=== PATIENT | female | born 1960 | race Caucasian/White ===

== ENCOUNTER 2016-10-02 09:32 | Inpatient (IN) | payer BC ==
[~2016-10-02] VITALS: Ht 165.1 cm; Wt 71.0 kg
[2016-10-02 10:05] VITALS: BP 109/72
[2016-10-02] MEDS ORDERED: APIX5TAB PO (10:32)
[2016-10-02] MEDS ORDERED: CHOL200040 PO (10:32)
[2016-10-02] MEDS ORDERED: MULT-377 PO (10:32)
[2016-10-02] MEDS ORDERED: PARO7.5C PO (10:32)
[2016-10-02] MEDS ORDERED: METO25TA9 PO (10:32)
[2016-10-02] MEDS ORDERED: ASPI-650 PO (10:32)
[2016-10-02] MEDS ORDERED: RANI150T8 PO (10:33)
[2016-10-02] MEDS ORDERED: BISACODYL 10 MG SUPP PR PRN (11:30)
[2016-10-02] MEDS ORDERED: ONDANSETRON 2MG/ML, 2ML IVPush PRN (11:30)
[2016-10-02] MEDS ORDERED: ACETAMINOPHEN 325 MG TABLET PO PRN (11:30)
[2016-10-02] MEDS ORDERED: BISACODYL 5 MG EC TABLET PO PRN (11:30)
[2016-10-02] MEDS ORDERED: ZOLPIDEM 5MG TABLET PO PRN (11:30)
[2016-10-02 11:50] VITALS: BP 135/95
[2016-10-02] MEDS: APIXABAN 5 MG TABLET PO SCH ×2 (11:52→22:05)
[2016-10-02] MEDS: SOTALOL 80MG TABLET PO SCH ×2 (11:52→22:06)
[2016-10-02 12:33] LABS: BLOOD UREA NITROGEN 18 mg/dL (7-18)
[2016-10-02 12:43] LABS: IS PT STATUS REG ER OR PRE ER? NO
[2016-10-02 14:34] VITALS: BP 119/79
[2016-10-02 17:17] LABS: IS PT STATUS REG ER OR PRE ER? NO
[2016-10-02 18:30] VITALS: BP 116/81
[2016-10-02] MEDS ORDERED: SOTALOL 80MG TABLET PO SCH (21:00)
[2016-10-02] MEDS ORDERED: APIXABAN 5 MG TABLET PO SCH (21:00)
[2016-10-02 23:21] LABS: IS PT STATUS REG ER OR PRE ER? NO
[2016-10-03 01:13] VITALS: BP 129/80
[2016-10-03 07:28] VITALS: BP 110/67
[2016-10-03] MEDS: APIXABAN 5 MG TABLET PO SCH ×2 (08:07→20:16)
[2016-10-03] MEDS: SOTALOL 80MG TABLET PO SCH ×2 (08:07→20:16)
[2016-10-03 16:02] VITALS: BP 114/67
[2016-10-03 18:41] VITALS: BP 119/71
[2016-10-04 01:16] VITALS: BP 104/62
[2016-10-04 06:45] VITALS: BP 111/73
[2016-10-04] MEDS: APIXABAN 5 MG TABLET PO SCH (08:10)
[2016-10-04] MEDS: SOTALOL 80MG TABLET PO SCH (08:10)
[2016-10-04] MEDS ORDERED: SOTA80TA18 PO (09:24)
[2016-10-04] MEDS ORDERED: APIX5TAB PO (12:26)
== END 2016-10-04 11:00 | disposition home or self-care (01) | DRG 309 ==
LOC: 5SO 09:32 → EDSTATUS 11:00 → DCLOUNGE 10-04 10:40
PROVIDERS: ADMIT Internal Medicine Cardiovascular Disease; ATTEND Internal Medicine Cardiovascular Disease
DX: I48.0 Paroxysmal atrial fibrillation (principal); D68.69 Other thrombophilia; Z79.82 Long term (current) use of aspirin
CPT/HCPCS: 36415; 71020; 80048; 80061; 84439; 84443; 84484; 85014; 85018; 93005

== ENCOUNTER → 2017-04-25 | Outpatient (CLI) | payer BC ==
[~2017-04-25] MED LIST: APIX5TAB PO; ASPI-650 PO; CHOL200040 PO; METO-282 PO; MULT-377 PO; PARO7.5C PO; RANI150T8 PO; REGADENOSON 0.4 MG/5 ML SYRINGE ONE; SOTA80TA18 PO
== END | disposition home or self-care (01) ==
LOC: RAD 07:55
PROVIDERS: ATTEND Internal Medicine Cardiovascular Disease
DX: R06.02 Shortness of breath (principal); I10 Essential (primary) hypertension
CPT/HCPCS: 78452; 93017; 93306; A9502; J2785

== ENCOUNTER → 2017-12-21 | Outpatient (CLI) | payer BC ==
[~2017-12-21] MED LIST changes: +RANI150T23 PO; -RANI150T8 PO; -REGADENOSON 0.4 MG/5 ML SYRINGE ONE
== END | disposition home or self-care (01) ==
LOC: CFH 09:32
PROVIDERS: ATTEND Internal Medicine
DX: J18.9 Pneumonia, unspecified organism (principal); E04.1 Nontoxic single thyroid nodule; R91.8 Other nonspecific abnormal finding of lung field
CPT/HCPCS: 71250

== ENCOUNTER 2019-08-27 07:37 | Outpatient (CLI) | payer BC ==
[~2019-08-27 07:37] MED LIST changes: -MULT-377 PO; +MULT-395 PO; +RANI-467 PO; -RANI150T23 PO
[2019-08-27] MEDS ORDERED: REGADENOSON 0.4 MG/5 ML SYRINGE ONE (11:20)
== END 2019-08-27 23:59 | disposition home or self-care (01) ==
LOC: CFH 07:37
PROVIDERS: ATTEND Family Medicine
DX: I08.0 Rheumatic disorders of both mitral and aortic valves (principal); I25.9 Chronic ischemic heart disease, unspecified; I48.91 Unspecified atrial fibrillation
CPT/HCPCS: 78452; 93017; 93306; A9502; J2785

== ENCOUNTER 2019-09-10 11:01 | Day surgery (SDC) | payer BC ==
[~2019-09-10] VITALS: Ht 165.1 cm; Wt 80.0 kg
[2019-09-10] MEDS ORDERED: ALBU8.5H8 INH (11:40)
[2019-09-10] MEDS ORDERED: ESOM20CA PO (11:40)
[2019-09-10] MEDS ORDERED: FLUT1BLS INH (11:40)
[2019-09-10] MEDS ORDERED: CEFU250T66 PO (11:40)
[2019-09-10 11:59] LABS: BASOPHILS # (AUTO) 0.03 x10^3/uL (0-0.1); BASOPHILS % (AUTO) 0 % (0-1); EOSINOPHILS % (AUTO) 1 % (1-7); LYMPHOCYTES % (AUTO) 30 % (22-44); MD NO; MEAN CORPUSCULAR HEMOGLOBIN 32.6 pg (27.0-34.8); MEAN CORPUSCULAR HGB CONC 33.4 g/dL (32.4-35.8); MEAN CORPUSCULAR VOLUME 97.8 fL (80-100); MEAN PLATELET VOLUME 9.7 fL (7.4-10.4); MONOCYTES # (AUTO) 0.69 x10^3/uL (0.2-0.8); MONOCYTES % (AUTO) 8 % (2-9); NEUTROPHILS % (AUTO) 61 % (42-75); PLATELET COUNT 189 x10^3/uL (130-400); RED BLOOD COUNT 4.65 x10^6/uL (3.82-5.3); RED CELL DISTRIBUTION WIDTH 13.8 % (9.6-15.2)
[2019-09-10 12:09] LABS: ANION GAP 7 mmol/L (5-15); CALCIUM 9.7 mg/dL (8.5-10.1); CHLORIDE 108 mmol/L (98-107); CREATININE 0.99 mg/dL (0.55-1.02)
[2019-09-10] MEDS ORDERED: LIDOCAINE 1%, 20ML ONE (12:10)
[2019-09-10] MEDS ORDERED: MIDAZOLAM 1 MG/ML, 5ML ONE (12:10)
[2019-09-10] MEDS ORDERED: FENTANYL PF 100 MCG/2ML ONE (12:10)
[2019-09-10] MEDS ORDERED: OXYcodone/APAP 5/325MG TABLET PO ONE (17:00)
== END 2019-09-10 17:11 | disposition home or self-care (01) ==
LOC: CACL 11:01 → 5SO 13:26 → CACL 17:11
PROVIDERS: ATTEND Internal Medicine Cardiovascular Disease
DX: R93.1 Abnormal findings on diagnostic imaging of heart and coronary circulation (principal); I20.8 Other forms of angina pectoris; E78.5 Hyperlipidemia, unspecified; I48.0 Paroxysmal atrial fibrillation; K21.9 Gastro-esophageal reflux disease without esophagitis; Z79.899 Other long term (current) drug therapy; Z79.01 Long term (current) use of anticoagulants; Z98.890 Other specified postprocedural states; Z79.82 Long term (current) use of aspirin; Z72.89 Other problems related to lifestyle
CPT/HCPCS: 36415; 80048; 85025; 93458; 99156; C1760; C1769; C1894; J2250; J3010; Q9967; G0378

== ENCOUNTER 2020-01-20 15:56 | Emergency (ER) | payer BC ==
[~2020-01-20] VITALS: Ht 167.6 cm; Wt 79.2 kg
[~2020-01-20 15:56] MED LIST changes: +ALBU8.5H8 INH; +CEFU250T66 PO; +ESOM20CA PO; +FLUT1BLS INH
[2020-01-20 16:42] LABS: BASOPHILS % (AUTO) 0 % (0-1); EOSINOPHILS % (AUTO) 0 % (1-7); LYMPHOCYTES % (AUTO) 36 % (22-44); MEAN CORPUSCULAR HEMOGLOBIN 31.7 pg (27.0-34.8); MEAN CORPUSCULAR HGB CONC 33.8 g/dL (32.4-35.8); MEAN PLATELET VOLUME 9.7 fL (7.4-10.4); MONOCYTES % (AUTO) 12 % (2-9); NEUTROPHILS % (AUTO) 52 % (42-75); PLATELET COUNT 175 x10^3/uL (130-400); RED BLOOD COUNT 4.66 x10^6/uL (3.82-5.3)
[2020-01-20 16:47] LABS: MD NO
[2020-01-20 16:54] LABS: ALANINE AMINOTRANSFERASE 69 U/L (12-78); ALBUMIN 3.7 g/dL (3.4-5.0); ANION GAP 7 mmol/L (5-15); CALCIUM 9.9 mg/dL (8.5-10.1); CHLORIDE 104 mmol/L (98-107); CREATININE 0.87 mg/dL (0.55-1.02)
[2020-01-20 16:58] LABS: ALKALINE PHOSPHATASE 90 U/L (45-117); BILIRUBIN,TOTAL 0.5 mg/dL (0.2-1.0); TOTAL PROTEIN 7.1 g/dL (6.4-8.2)
[2020-01-20] MEDS ORDERED: METH16TA PO (17:07)
[2020-01-20] MEDS ORDERED: FLUT1BLS3 IH (17:07)
[2020-01-20 18:30] LABS: TROPONIN I 0.017 ng/mL (0.000-0.045)
--- NOTE | 2020-01-20 19:00 | NUR ---
report received from timi [email or web address].
[2020-01-20 19:37] VITALS: BP 122/67
== END 2020-01-20 19:39 | disposition home or self-care (01) ==
LOC: ED 17:35
DX: J44.1 Chronic obstructive pulmonary disease with (acute) exacerbation (principal); R06.02 Shortness of breath; R06.00 Dyspnea, unspecified; R11.10 Vomiting, unspecified; I21.9 Acute myocardial infarction, unspecified; Z87.891 Personal history of nicotine dependence
CPT/HCPCS: 36415; 71045; 80053; 83880; 84484; 85025; 93005; 99285

== ENCOUNTER → 2020-02-10 | Outpatient (CLI) | payer BC ==
[~2020-02-10] MED LIST changes: +FLUT1BLS3 IH; +METH16TA PO
== END | disposition home or self-care (01) ==
LOC: CARD 12:28
PROVIDERS: ATTEND Internal Medicine Cardiovascular Disease
DX: J45.909 Unspecified asthma, uncomplicated (principal)
CPT/HCPCS: 94060; 94726; 94729